=== PATIENT | male | born 1965 | race Caucasian/White ===

== ENCOUNTER 2016-10-30 13:33 | Emergency (ER) | payer OTHER ==
[2016-10-30 13:49] VITALS: O2SAT 99
[2016-10-30] MEDS ORDERED: MORPHINE SULFATE 4 MG INJ IV ONE (13:49)
[2016-10-30] MEDS ORDERED: Sodium Chloride 0.9% 1000 ML 1,000 ML IV STA (13:49)
[2016-10-30] MEDS ORDERED: Sodium Chloride 0.9% 1000 ML 1,000 ML ONE (13:52)
[2016-10-30] MEDS ORDERED: MORPHINE SULFATE 4 MG INJ ONE (13:52)
--- NOTE | 2016-10-30 13:53 | ERPHSYRPT ---
- History of Present Illness Time Seen by Provider: 10/30/16 13:51 Historian: patient, family Exam Limitations: no limitations Patient Subjective Stated Complaint: pain in left side started last night. went to a green party last night. drank alot. denies [id number] symptoms. nausea with no vomiting Triage Nursing Assessment: writhing on the bed. restless. states christie to left lower abdomen. tender to touch. nausea with no vomiting Physician History: pain in left side started last night. went to a green party last night. drank a lot. denies urinary symptoms. nausea with no vomiting Timing/Duration: yesterday Quality: cramping, stabbing Abdominal Pain Onset Location: LLQ Pain Radiation: no radiation Severity of Pain-Max: moderate Severity of Pain-Current: severe Modifying Factors: Improves With: nothing Associated Symptoms: nausea, No diarrhea Previous symptoms: no prior history Allergies/Adverse Reactions: No Known Drug Allergies Allergy (Verified 12/19/14 13:40) Hx Tetanus, Diphtheria Vaccination/Date Given: Yes Hx Influenza Vaccination/Date Given: No Hx Pneumococcal Vaccination/Date Given: No Immunizations Up to Date: No (unknown) - Review of Systems Constitutional: No Fever, No Chills Eyes: No Symptoms Ears, Nose, & Throat: No Symptoms Respiratory: No Cough, No Dyspnea Cardiac: No Chest Pain, No Edema, No Syncope Abdominal/Gastrointestinal: Abdominal Pain, Nausea, No Vomiting, No Diarrhea Genitourinary Symptoms: No Dysuria Musculoskeletal: No Back Pain, No Neck Pain Skin: No Rash Neurological: No Dizziness, No Focal Weakness, No Sensory Changes Psychological: No Symptoms Endocrine: No Symptoms All Other Systems: Reviewed and Negative - Past Medical History Pertinent Past Medical History: Yes Neurological History: No Pertinent History ENT History: No Pertinent History Cardiac History: No Pertinent History Respiratory History: No Pertinent History Endocrine Medical History: No Pertinent History Musculoskeletal History: Degenerative Disk Disease, Other GI Medical History: GERD, Ulcer History: No Pertinent History Psycho-Social History: Anxiety Male Reproductive Disorders: No Pertinent History Other Medical History: chronic back pain, hx of dog bite R arm - Past Surgical History Past Surgical History: Yes Neuro Surgical History: No Pertinent History Cardiac: No Pertinent History Respiratory: No Pertinent History Gastrointestinal: No Pertinent History Genitourinary: No Pertinent History Musculoskeletal: No Pertinent History Male Surgical History: No Pertinent History Other Surgical History: TONSILS - Social History Smoking Status: Current every day smoker How long have you smoked: 35 Exposure to second hand smoke: Yes Drug Use: marijuana Patient Lives Alone: No - Nursing Vital Signs Nursing Vital Signs: Initial Vital Signs Temperature 97.4 F 10/30/16 13:37 Pulse Rate 61 10/30/16 13:37 Respiratory Rate 28 H 10/30/16 13:37 Blood Pressure 104/77 10/30/16 13:37 O2 Sat by Pulse Oximetry 99 10/30/16 13:37 Pain Scale Pain Intensity 10 - Physical Exam General Appearance: no apparent distress, alert Eye Exam: PERRL/EOMI, eyes nml inspection Ears, Nose, Throat Exam: normal ENT inspection, pharynx normal, moist mucous membranes Neck Exam: normal inspection, non-tender, supple, full range of motion Respiratory Exam: normal breath sounds, lungs clear, No respiratory distress Cardiovascular Exam: regular rate/rhythm, normal heart sounds Gastrointestinal/Abdomen Exam: soft, tenderness (left lower quadrant), No mass Back Exam: normal inspection, normal range of motion, No CVA tenderness, No vertebral tenderness Extremity Exam: normal inspection, normal range of motion, pelvis stable Neurologic Exam: alert, oriented x 3, cooperative, normal mood/affect, nml cerebellar function, sensation nml, No motor deficits Skin Exam: normal color, warm, dry SpO2: 99 Oxygen Delivery: Room Air - Course Nursing assessment & vital signs reviewed: Yes - CT Exams Abdomen/Pelvis CT Interpretation: Tele-radiologist Report Ordered Tests: Active Orders 24 hr Category Date Time Status Clean Catch Urine Specimen STAT Care 10/30/16 13:40 Active IV Insertion STAT Care 10/30/16 13:50 Active ABDOMEN AND PELVIS W/0 CONTRAS [CT] Stat Exams 10/30/16 13:50 Taken AMYLASE Stat Lab 10/30/16 13:45 Completed CBC W DIFF Stat Lab 10/30/16 13:45 Completed CMP Stat Lab 10/30/16 13:45 Completed CULTURE,URINE Stat Lab 10/30/16 13:45 Received Lactic Acid Stat Lab 10/30/16 13:45 Completed UA W/ MICROSCOPIC Stat Lab 10/30/16 13:45 Completed Urine Triage Profile Stat Lab 10/30/16 13:45 Completed Medication Summary Discontinued Medications Generic Name Dose Route Start Last Admin Trade Name Freq PRN Reason Stop Dose Admin Sodium Chloride 1,000 mls @ 999 mls/hr 10/30/16 13:49 10/30/16 13:55 Sodium Chloride 0.9% 1000 Ml IV 10/30/16 14:49 999 mls/hr .Q1H1M STA Administration Sodium Chloride Confirm 10/30/16 13:52 Sodium Chloride 0.9% 1000 Ml Administered 10/30/16 13:53 Dose 1,000 mls @ ud .ROUTE .STK-MED ONE Ketorolac Tromethamine Confirm 10/30/16 14:28 Toradol 30 Mg Injection Administered 10/30/16 14:29 Dose 30 mg .ROUTE .STK-MED ONE Ketorolac Tromethamine 30 mg 10/30/16 14:30 10/30/16 14:33 Toradol 30 Mg Injection IV 10/30/16 14:31 30 mg STAT ONE Administration Morphine Sulfate 4 mg 10/30/16 13:49 10/30/16 13:54 Morphine Sulfate 4 Mg Inj IV 10/30/16 13:50 4 mg STAT ONE Administration Morphine Sulfate Confirm 10/30/16 13:52 Morphine Sulfate 4 Mg Inj Administered 10/30/16 13:53 Dose 4 mg .ROUTE .STK-MED ONE Lab/Rad Data: Laboratory Result Diagrams 10/30/16 13:45 10/30/16 13:45 Laboratory Results 10/30/16 10/30/16 10/30/16 Range/Units 13:45 13:45 13:45 WBC 12.5 H (4.0-10.5) K/mm3 RBC 4.38 (4.1-5.6) M/mm3 Hgb 13.9 (12.5-18.0) gm/dl Hct 39.1 L (42-50) % MCV 89.3 (78-100) fl MCH 31.7 (26-32) pg MCHC 35.5 (32-36) g/dl RDW 12.2 (11.5-14.0) % Plt Count 254 (150-450) K/mm3 MPV 9.3 (6-9.5) fl Gran % 79.9 H (36.0-66.0) % Lymphocytes % 13.7 L (24.0-44.0) % Monocytes % 5.8 (0.0-12.0) % Eosinophils % 0.5 (0.00-5.0) % Basophils % 0.1 (0.0-0.4) % Basophils # 0.01 (0-0.4) Sodium 140 (136-145) mEq/L Potassium 3.2 L (3.5-5.1) mEq/L Chloride 101 (98-107) mEq/L Carbon Dioxide 26.1 (21-32) mEq/L Anion Gap 16.0 H (5-15) MEQ/L BUN 21 H (9-20) mg/dL Creatinine 1.19 (0.55-1.30) mg/dl Estimated GFR > 60 ML/MIN Glucose 115 H (70-110) MG/DL Lactic Acid 1.2 (0.4-2.0) Calcium 9.6 (8.5-10.1) mg/dL Total Bilirubin 0.80 (0.2-1.0) mg/dL AST 17 (15-37) U/L ALT 23 (12-78) U/L Alkaline Phosphatase 71 (46-116) U/L Serum Total Protein 7.3 (6.4-8.2) gm/dL Albumin 4.4 (3.4-5.0) g/dL Amylase 53 (25-115) U/L Ur Collection Type Urine Color (YELLOW) Urine Appearance (CLEAR) Urine pH (5-6) Ur Specific [place] (1.005-1.025) Urine Protein (Negative) Urine Ketones (NEGATIVE) Urine Blood (0-5) Zuhair/ul Urine Nitrite (NEGATIVE) Urine Bilirubin (NEGATIVE) Urine Urobilinogen (0-1) mg/dL Ur Leukocyte Esterase (NEGATIVE) Urine Microscopic RBC (0-2) /HPF Urine Microscopic WBC (0-5) /HPF Ur Epithelial Cells (FEW) /HPF Urine Bacteria (NEGATIVE) /HPF Urine Mucus (NEGATIVE) /HPF Urine Glucose (NEGATIVE) mg/dL Urine Opiates Level (NEGATIVE) Ur Methadone (NEGATIVE) Urine Barbiturates (NEGATIVE) Ur Phencyclidine (PCP) (NEGATIVE) Urine Amphetamine (NEGATIVE) U Benzodiazepine Level (NEGATIVE) Urine Cocaine (NEGATIVE) Urine Marijuana (THC) (NEGATIVE) Specimen Received 10/30/16 10/30/16 Range/Units 13:45 13:45 WBC (4.0-10.5) K/mm3 RBC (4.1-5.6) M/mm3 Hgb (12.5-18.0) gm/dl Hct (42-50) % MCV (78-100) fl MCH (26-32) pg MCHC (32-36) g/dl RDW (11.5-14.0) % Plt Count (150-450) K/mm3 MPV (6-9.5) fl Gran % (36.0-66.0) % Lymphocytes % (24.0-44.0) % Monocytes % (0.0-12.0) % Eosinophils % (0.00-5.0) % Basophils % (0.0-0.4) % Basophils # (0-0.4) Sodium (136-145) mEq/L Potassium (3.5-5.1) mEq/L Chloride (98-107) mEq/L Carbon Dioxide (21-32) mEq/L Anion Gap (5-15) MEQ/L BUN (9-20) mg/dL Creatinine (0.55-1.30) mg/dl Estimated GFR ML/MIN Glucose (70-110) MG/DL Lactic Acid (0.4-2.0) Calcium (8.5-10.1) mg/dL Total Bilirubin (0.2-1.0) mg/dL AST (15-37) U/L ALT (12-78) U/L Alkaline Phosphatase (46-116) U/L Serum Total Protein (6.4-8.2) gm/dL Albumin (3.4-5.0) g/dL Amylase (25-115) U/L Ur Collection Type VOID Urine Color YELLOW (YELLOW) Urine Appearance CLOUDY (CLEAR) Urine pH 5.0 (5-6) Ur Specific [place] 1.030 (1.005-1.025) Urine Protein TRACE (Negative) Urine Ketones LARGE (NEGATIVE) Urine Blood 250 (0-5) Zuhair/ul Urine Nitrite NEGATIVE (NEGATIVE) Urine Bilirubin NEGATIVE (NEGATIVE) Urine Urobilinogen NORMAL (0-1) mg/dL Ur Leukocyte Esterase TRACE (NEGATIVE) Urine Microscopic RBC >100 (0-2) /HPF Urine Microscopic WBC 10-15 (0-5) /HPF Ur Epithelial Cells MODERATE (FEW) /HPF Urine Bacteria MODERATE (NEGATIVE) /HPF Urine Mucus MANY (NEGATIVE) /HPF Urine Glucose NEGATIVE (NEGATIVE) mg/dL Urine Opiates Level NEG. (NEGATIVE) Ur Methadone NEG. (NEGATIVE) Urine Barbiturates NEG. (NEGATIVE) Ur Phencyclidine (PCP) NEG. (NEGATIVE) Urine Amphetamine POS. (NEGATIVE) U Benzodiazepine Level NEG. (NEGATIVE) Urine Cocaine NEG. (NEGATIVE) Urine Marijuana (THC) POS. (NEGATIVE) Specimen Received 10/30/2016 1400 - Progress Progress: improved Progress Note: 10/30/16 14:49 Patient is examined again. Patient abdominal pain is resolved feeling much better, able to drink better. Patient is informed about his laboratory data and CT of the abdomen which suggests that patient might have passed a small renal stones. Patient urine test was showing positive for tetrahydrocannabinol, cannabinoids and amphetamines. Patient is informed not to use those substance. Counseled pt/family regarding: drug and/or alcohol abuse, lab results, diagnosis , need for follow-up, rad results - Departure Time of Disposition: 14:51 Departure Disposition: Home Clinical Impression: Renal calculus, left Condition: Stable Critical Care Time: Yes Critical Care Time(excluding separately billable procedures): 30-74 minutes Referrals: SHELLIE WEINER [Primary Care Provider] - Instructions: Abdominal Pain-Adult, Kidney Stones Additional Instructions: ABDOMINAL PAIN 1. There are several different causes for abdominal pain, some of which may not be able to be identified on initial examination. 2. The important thing to remember is that bodily functions can change in a short period of time. If you notice any of the following symptoms, return to the emergency department or consult your doctor immediately: A. Worsening pain or no improvement in the next 12 hours. B. Increasing, severe abdominal pain C. Blood in stool D. Black stools E. Persistent vomiting F. Fever or chills or other symptoms Please follow the instructions given to you. Please take your medication as prescribed if given. If symptoms recur or get worse, come back to the emergency room if you cannot reach your primary care physician, or call your primary care physician for an appointment. Again if your symptoms get worse, come back to the emergency room. Thanks for visiting emergency room, and let us take care of you. Prescriptions: Ciprofloxacin [Cipro 500 MG] 500 mg PO BIDAC #20 tablet Cyclobenzaprine HCl 10 mg [Flexeril 10 MG] 10 mg PO TID #30 tablet
[2016-10-30 14:11] LABS: BASOPHIL % 0.1 % (0.0-0.4); Eosinophil % 0.5 % (0.00-5.0); Granulocytes % 79.9 % (36.0-66.0); Lymphocytes % 13.7 % (24.0-44.0); Mean Cell Volume 89.3 fl (78-100); Mean Corpuscular Hemoglobin 31.7 pg (26-32); Mean Platelet Volume 9.3 fl (6-9.5); Monocytes % 5.8 % (0.0-12.0); Platelet Count 254 K/mm3 (150-450); Red Blood Count 4.38 M/mm3 (4.1-5.6); Red Cell Distribution Width 12.2 % (11.5-14.0); White Blood Count 12.5 K/mm3 (4.0-10.5)
[2016-10-30 14:14] VITALS: BP 125/68; PULSE 60
[2016-10-30 14:23] LABS: Bilirubin NEGATIVE (NEGATIVE); Blood 250 Ery/ul (0-5); COMPLETE URINE MICROSCOPIC? YES; Collection Type VOID; Glucose NEGATIVE (NEGATIVE); Leukocyte Esterase TRACE (NEGATIVE); Mucus MANY /HPF (NEGATIVE)
[2016-10-30 14:24] LABS: ADD URINE CULTURE? YES (NO); Bacteria MODERATE /HPF (NEGATIVE); Epithelial Cells MODERATE /HPF (FEW)
[2016-10-30] MEDS ORDERED: TORAdol 30 mg Injection ONE (14:28)
[2016-10-30 14:29] LABS: ALBUMIN 4.4 g/dL (3.4-5.0); ALKALINE PHOSPHATASE 71 U/L (46-116); BLOOD UREA NITROGEN 21 mg/dL (9-20); CHLORIDE 101 mEq/L (98-107); Carbon Dioxide 26.1 mEq/L (21-32); Glucose 115 MG/DL (70-110); Potassium 3.2 mEq/L (3.5-5.1); SGOT/AST 17 U/L (15-37); SGPT/ALT 23 U/L (12-78); SODIUM 140 mEq/L (136-145); Total Protein 7.3 gm/dL (6.4-8.2)
[2016-10-30] MEDS ORDERED: TORAdol 30 mg Injection IV ONE (14:30)
--- NOTE | 2016-10-30 20:48 | XRAY ---
Indication: Left lower quadrant pain. Multiple contiguous axial images obtained through the abdomen and pelvis without contrast as ordered. Comparison: August 06, 2014. Lung bases demonstrates minimal bibasilar dependent atelectasis with stable right posterior calcified and noncalcified granuloma. No infiltrate or effusion. Heart is not enlarged. Images through the abdomen and pelvis slightly degraded by motion artifact. Stomach is moderately fluid distended. Noncontrasted bowel loops appear nonobstructed. Normal appendix. No free fluid/air. No renal calculus. Left kidney does appear prominent/edematous with mild hydronephrosis and perinephric stranding possibly from recent passage of calculus. Remaining liver, gallbladder, pancreas, spleen, adrenal glands, kidneys, ureters, and bladder appear unremarkable for noncontrasted exam. Minimal aortoiliac calcifications without AAA. Osseous structures intact again with mild lumbar degenerative changes. Again small bilateral fatty inguinal hernias. Impression: 1. Motion artifact. 2. Left kidney now appears prominent/edematous with mild hydronephrosis. Rule out recent passage of calculus. 3. Stable bilateral fatty inguinal hernias. Comment: Preliminary interpretation was made by [facility]. No critical discrepancy. CTDI 8.99
== END 2016-10-30 15:08 | disposition home or self-care (01) ==
LOC: ED 13:33
DX: N20.0 Calculus of kidney (principal); R10.32 Left lower quadrant pain
CPT/HCPCS: 36000; 36415; 74176; 80053; 80307; 81000; 82150; 83605; 85025; 87086; 96360; 96374; 96375; 99284; J1885; J2270

== ENCOUNTER 2016-11-05 15:12 | Emergency (ER) | payer OTHER ==
[2016-11-05] MEDS ORDERED: Sodium Chloride 0.9% 1000 ML 1,000 ML IV STA (16:00)
[2016-11-05] MEDS ORDERED: TORAdol 30 mg Injection IV ONE (16:00)
[2016-11-05] MEDS ORDERED: Zofran 4 MG/2 ML VIAL IV ONE (16:00)
[2016-11-05] MEDS ORDERED: TORAdol 30 mg Injection ONE (16:02)
[2016-11-05] MEDS ORDERED: Zofran 4 MG/2 ML VIAL ONE (16:02)
[2016-11-05] MEDS ORDERED: Sodium Chloride 0.9% 1000 ML 1,000 ML ONE (16:03)
[2016-11-05 16:06] LABS: BASOPHIL % 0.1 % (0.0-0.4); Eosinophil % 1.2 % (0.00-5.0); Granulocytes % 77.4 % (36.0-66.0); Mean Cell Volume 92.7 fl (78-100); Mean Corpuscular Hemoglobin 31.4 pg (26-32); Mean Platelet Volume 9.7 fl (6-9.5); Monocytes % 8.3 % (0.0-12.0); Platelet Count 262 K/mm3 (150-450); Red Blood Count 4.77 M/mm3 (4.1-5.6); Red Cell Distribution Width 12.9 % (11.5-14.0); White Blood Count 14.7 K/mm3 (4.0-10.5)
[2016-11-05 16:08] LABS: Bilirubin NEGATIVE (NEGATIVE); Blood 250 Ery/ul (0-5); COMPLETE URINE MICROSCOPIC? YES; Collection Type VOID; Glucose NEGATIVE (NEGATIVE); Leukocyte Esterase NEGATIVE (NEGATIVE)
--- NOTE | 2016-11-05 16:10 | ERPHSYRPT ---
- History of Present Illness Time Seen by Provider: 11/05/16 15:45 Source: patient Exam Limitations: no limitations Patient Subjective Stated Complaint: pt states he was seen 4 days ago in this Er for kidney stone on left side. pt states pain went away and then presented again this morning. pt states he was told in the Er he passed the stone while in the Er. Triage Nursing Assessment: pt pink, warm, moist. pt irritable. moving around in bed. Physician History: 50 y/o male with recent history of left sided kidney stone comes to the ER with severe left sided flank pain that started just prior to arrival. Pt describes the pain as sharp, constant, 10/10, with radiation to groin and not relieved by a pain pill. Pt said that the kidney stone 4 days ago passed on its own. Pt denies any fever, chills, nausea, vomiting, or urinary symptoms. Timing/Duration: today Activites at Onset: none Quality: sharpness Onset Location: left flank Pain Radiation: groin Severity of Pain-Max: severe Severity of Pain-Current: severe Modifying Factors: Improves With: nothing Associated Symptoms: denies symptoms Prior abdominal problems: none Sexual intercourse history: non-contributory Allergies/Adverse Reactions: No Known Drug Allergies Allergy (Verified 11/05/16 15:51) Hx Tetanus, Diphtheria Vaccination/Date Given: Yes (unknown) Hx Influenza Vaccination/Date Given: No Hx Pneumococcal Vaccination/Date Given: No Immunizations Up to Date: Yes - Past Medical History Pertinent Past Medical History: Yes Neurological History: No Pertinent History ENT History: No Pertinent History Cardiac History: No Pertinent History Respiratory History: No Pertinent History Endocrine Medical History: No Pertinent History Musculoskeletal History: Degenerative Disk Disease, Other GI Medical History: GERD, Ulcer History: No Pertinent History Psycho-Social History: Anxiety Male Reproductive Disorders: No Pertinent History Other Medical History: chronic back pain, hx of dog bite R arm - Past Surgical History Past Surgical History: Yes Neuro Surgical History: No Pertinent History Cardiac: No Pertinent History Respiratory: No Pertinent History Gastrointestinal: No Pertinent History Genitourinary: No Pertinent History Musculoskeletal: No Pertinent History Male Surgical History: No Pertinent History Other Surgical History: TONSILS - Social History Smoking Status: Current every day smoker How long have you smoked: 40 Exposure to second hand smoke: Yes Drug Use: marijuana Patient Lives Alone: No - Review of Systems Constitutional: No Fever, No Chills Eyes: No Symptoms Ears, Nose, & Throat: No Symptoms Respiratory: No Cough, No Dyspnea Cardiac: No Chest Pain, No Edema, No Syncope Abdominal/Gastrointestinal: No Abdominal Pain, No Nausea, No Vomiting, No Diarrhea Genitourinary Symptoms: Flank Pain, No Dysuria, No Frequency, No Hematuria, No Hesitancy Musculoskeletal: No Back Pain, No Neck Pain Skin: No Rash Neurological: No Dizziness, No Focal Weakness, No Sensory Changes Psychological: No Symptoms Endocrine: No Symptoms All Other Systems: Reviewed and Negative - Nursing Vital Signs Nursing Vital Signs: Initial Vital Signs Temperature 97.0 F 11/05/16 15:45 Pulse Rate 62 11/05/16 15:45 Respiratory Rate 18 11/05/16 15:45 Blood Pressure 187/50 11/05/16 15:45 O2 Sat by Pulse Oximetry 99 11/05/16 15:45 Pain Scale Pain Intensity 2 - Physical Exam General Appearance: severe distress, alert Eye Exam: PERRL/EOMI Ears, Nose, Throat Exam: pharynx normal, moist mucous membranes Neck Exam: normal inspection, supple Respiratory Exam: normal breath sounds, lungs clear Cardiovascular Exam: regular rate/rhythm, normal heart sounds, normal peripheral pulses, No edema Gastrointestinal/Abdomen Exam: soft, normal bowel sounds, No tenderness Back Exam: normal inspection, normal range of motion, No CVA tenderness Extremity Exam: normal inspection, normal range of motion, No pedal edema Neurologic Exam: alert, oriented x 3, cooperative, sensation nml, No motor deficits Skin Exam: normal color, warm, dry, No rash SpO2: 99 Oxygen Delivery: Room Air - Course Nursing assessment & vital signs reviewed: Yes Ordered Tests: Active Orders 24 hr Category Date Time Status IV Insertion STAT Care 11/05/16 15:52 Active ABDOMEN AND PELVIS W/0 CONTRAS [CT] Stat Exams 11/05/16 16:00 Taken CBC W DIFF Stat Lab 11/05/16 15:45 Completed CMP Stat Lab 11/05/16 15:45 Completed UA W/ MICROSCOPIC Stat Lab 11/05/16 15:45 Completed Medication Summary Discontinued Medications Generic Name Dose Route Start Last Admin Trade Name Freq PRN Reason Stop Dose Admin Sodium Chloride 1,000 mls @ 999 mls/hr 11/05/16 16:00 11/05/16 16:06 Sodium Chloride 0.9% 1000 Ml IV 11/05/16 17:00 999 mls/hr .Q1H1M STA Administration Sodium Chloride Confirm 11/05/16 16:03 Sodium Chloride 0.9% 1000 Ml Administered 11/05/16 16:04 Dose 1,000 mls @ ud .ROUTE .STK-MED ONE Ketorolac Tromethamine 30 mg 11/05/16 16:00 11/05/16 16:06 Toradol 30 Mg Injection IV 11/05/16 16:01 30 mg STAT ONE Administration Ketorolac Tromethamine Confirm 11/05/16 16:02 Toradol 30 Mg Injection Administered 11/05/16 16:03 Dose 30 mg .ROUTE .STK-MED ONE Ondansetron HCl 4 mg 11/05/16 16:00 11/05/16 16:06 Zofran 4 Mg/2 Ml Vial IV 11/05/16 16:01 4 mg STAT ONE Administration Ondansetron HCl Confirm 11/05/16 16:02 Zofran 4 Mg/2 Ml Vial Administered 11/05/16 16:03 Dose 4 mg .ROUTE .STK-MED ONE Lab/Rad Data: Laboratory Result Diagrams 11/05/16 15:45 11/05/16 15:45 Laboratory Results 11/05/16 11/05/16 11/05/16 Range/Units 15:45 15:45 15:45 WBC 14.7 H (4.0-10.5) K/mm3 RBC 4.77 (4.1-5.6) M/mm3 Hgb 15.0 (12.5-18.0) gm/dl Hct 44.2 (42-50) % MCV 92.7 (78-100) fl MCH 31.4 (26-32) pg MCHC 33.9 (32-36) g/dl RDW 12.9 (11.5-14.0) % Plt Count 262 (150-450) K/mm3 MPV 9.7 H (6-9.5) fl Gran % 77.4 H (36.0-66.0) % Lymphocytes % 13.0 L (24.0-44.0) % Monocytes % 8.3 (0.0-12.0) % Eosinophils % 1.2 (0.00-5.0) % Basophils % 0.1 (0.0-0.4) % Basophils # 0.02 (0-0.4) Sodium 143 (136-145) mEq/L Potassium 3.8 (3.5-5.1) mEq/L Chloride 106 (98-107) mEq/L Carbon Dioxide 26.4 (21-32) mEq/L Anion Gap 14.1 (5-15) MEQ/L BUN 19 (9-20) mg/dL Creatinine 1.18 (0.55-1.30) mg/dl Estimated GFR > 60 ML/MIN Glucose 93 (70-110) MG/DL Calcium 9.5 (8.5-10.1) mg/dL Total Bilirubin 0.40 (0.2-1.0) mg/dL AST 16 (15-37) U/L ALT 20 (12-78) U/L Alkaline Phosphatase 70 (46-116) U/L Serum Total Protein 7.1 (6.4-8.2) gm/dL Albumin 4.3 (3.4-5.0) g/dL Ur Collection Type VOID Urine Color YELLOW (YELLOW) Urine Appearance CLEAR (CLEAR) Urine pH 5.0 (5-6) Ur Specific [place] 1.025 (1.005-1.025) Urine Protein NEGATIVE (Negative) Urine Ketones NEGATIVE (NEGATIVE) Urine Blood 250 (0-5) Zuhair/ul Urine Nitrite NEGATIVE (NEGATIVE) Urine Bilirubin NEGATIVE (NEGATIVE) Urine Urobilinogen NORMAL (0-1) mg/dL Ur Leukocyte Esterase NEGATIVE (NEGATIVE) Urine Microscopic RBC 10-15 (0-2) /HPF Urine Microscopic WBC 0-2 (0-5) /HPF Ur Epithelial Cells RARE (FEW) /HPF Urine Bacteria RARE (NEGATIVE) /HPF Urine Mucus MODERATE (NEGATIVE) /HPF Urine Glucose NEGATIVE (NEGATIVE) mg/dL Specimen Received 11/05/16 1545 - Progress Progress: improved Progress Note: 11/05/16 18:02 Pt feels much better after receiving toradol and NS fluids. Pt has a 2 mm obstructive calculus in the left UVJ. Pt will be d/c home on toradol for pain and will be given a referral to urology. - Departure Time of Disposition: 18:04 Departure Disposition: Home Clinical Impression: Kidney stone Condition: Stable Critical Care Time: No Referrals: DOCTOR,NO FAMILY [Primary Care Provider] - JOEY KING [COURTESY STAFF] - Instructions: Kidney Stones Additional Instructions: Follow up with Dr King for any further recommendations. Prescriptions: Ketorolac Tromethamine [Toradol] 10 mg PO QID PRN #20 tablet PRN Reason: Pain
[2016-11-05 16:26] LABS: ADD URINE CULTURE? NO (NO); Bacteria RARE /HPF (NEGATIVE); Epithelial Cells RARE /HPF (FEW); Mucus MODERATE /HPF (NEGATIVE); WBC 0-2 /HPF (0-5)
[2016-11-05 16:47] LABS: ALBUMIN 4.3 g/dL (3.4-5.0); ALKALINE PHOSPHATASE 70 U/L (46-116); ANION GAP 14.1 MEQ/L (5-15); BLOOD UREA NITROGEN 19 mg/dL (9-20); CHLORIDE 106 mEq/L (98-107); Carbon Dioxide 26.4 mEq/L (21-32); Glucose 93 MG/DL (70-110); Potassium 3.8 mEq/L (3.5-5.1); SGOT/AST 16 U/L (15-37); SGPT/ALT 20 U/L (12-78); SODIUM 143 mEq/L (136-145); Total Protein 7.1 gm/dL (6.4-8.2)
[2016-11-05 18:16] VITALS: BP 130/52; PULSE 66; O2SAT 97
--- NOTE | 2016-11-05 21:29 | XRAY ---
Indication: Left flank pain. Multiple contiguous axial images obtained through the abdomen and pelvis without contrast using renal stone protocol. Comparison: October 30, 2016. Lung bases again demonstrates minimal bibasilar dependent atelectasis with stable right posterior calcified and noncalcified granuloma. Heart is not enlarged. There is now 2 mm left UVJ calculus, previously obscured by respiration/motion artifact. Left kidney remains prominent/edematous with mild hydronephrosis and perinephric stranding consistent with partial obstruction. Noncontrasted stomach and bowel loops appear nonobstructed. Remaining liver, gallbladder, pancreas, spleen, adrenal glands, kidneys, ureters, and bladder appear unremarkable for noncontrasted exam. Minimal aortoiliac calcifications without AAA. Osseous structures intact again with mild lumbar degenerative changes. Again small bilateral fatty inguinal hernias. Impression: 1. 2 mm left UVJ calculus producing partial obstruction as detailed. 2. Stable bilateral fatty inguinal hernias. Comment: Preliminary interpretation was made by [facility]. No discrepancy. CTDI 14.44
== END 2016-11-05 18:16 | disposition home or self-care (01) ==
LOC: ED 15:12
DX: N20.0 Calculus of kidney (principal); R10.9 Unspecified abdominal pain
CPT/HCPCS: 36000; 36415; 74176; 80053; 81000; 85025; 96365; 96374; 96375; 99284; J1885; J2405